=== PATIENT | female | born 1995 | race Caucasian/White ===

== ENCOUNTER 2021-05-18 17:14 | Emergency (ER) | payer MEDICAID ==
[2021-05-18] MEDS ORDERED: Sodium Chloride 0.9% 10 ML Syringe FLUSH PRN (17:42)
[2021-05-18] MEDS ORDERED: Ondansetron 4 MG/2 ML SDV IVPUSH ONE (17:59)
[2021-05-18] MEDS ORDERED: HYDROmorphone 0.5 MG/0.5 ML Syringe IVPUSH ONE (17:59)
--- NOTE | 2021-05-18 18:32 | EDM.PDOC ---
ED HPI GENERAL MEDICAL PROBLEM - General Chief Complaint: Chest Pain Stated Complaint: CHEST PAIN NUMB ARMS Time Seen by Provider: 05/18/21 17:25 Source of Information: Reports: Patient History Limitations: Reports: No Limitations - History of Present Illness INITIAL COMMENTS - FREE TEXT/NARRATIVE: 25-year-old female presents the emergency department today with complaints of craig dden onset low back pain that radiated to her chest. Patient states she was laying on the couch just prior to arrival when she developed severe mid to low back pain that radiated into her chest. She states it felt like her chest was going to explode. She states both of her hands became hot and numb at the same time. She states that since this occurred she is having colicky type of a discomfort that is slightly less severe. She denies any recent fever, chills, nausea, vomiting or diarrhea. She denies any urinary symptoms. She denies any headache, cough or shortness of breath. She denies any illicit drug use, alcohol use or smoking history. She does not take any prescription medications. She states she does have a history of anxiety however is not prescribed any medications for this. She does not have a primary care provider as she states her and her significant other just recently moved to [facility]. Chest Pain Score (Numeric/FACES): 10 - Related Data Allergies Allergy/AdvReac Type Severity Reaction Status Date / Time succinylcholine Allergy Anaphylactic Verified 05/18/21 17:26 Shock Home Meds: Home Meds Fluticasone Propionate [Flonase] 05/18/21 [History] Hydrocodone/Acetaminophen [HYDROcodone-Acetaminophen 5-325 MG] 1 each PO Q6H PRN #10 tab 05/18/21 [Rx] Levonorgestrel-Ethin Estradiol [Vienva-28 Tablet] 05/18/21 [History] ED ROS GENERAL - Review of Systems Review Of Systems: Comprehensive ROS is negative, except as noted in HPI. ED EXAM, GENERAL - Physical Exam Exam: See Below Exam Limited By: No Limitations General Appearance: Alert, WD/WN, Moderate Distress Ears: Normal External Exam, Hearing Grossly Normal Nose: Normal Inspection Throat/Mouth: Normal Inspection, Normal Lips, Normal Voice, No Airway Compromise Head: Atraumatic, Normocephalic Neck: Normal Inspection, Supple Respiratory/Chest: No Respiratory Distress, Lungs Clear, Normal Breath Sounds, No Accessory Muscle Use, Chest Non-Tender Cardiovascular: Normal Peripheral Pulses, Regular Rate, Rhythm, No Edema, No Murmur Peripheral Pulses: 2+: Radial (L), Radial (R) GI/Abdominal: Normal Bowel Sounds, Soft, Non-Tender, No Distention (Female) Exam: Deferred Rectal (Female) Exam: Deferred Back Exam: Normal Inspection, Full Range of Motion, Vertebral Tenderness (At approximately T12/L1) Extremities: Normal Inspection, Normal Range of Motion, Non-Tender, No Pedal Edema, Normal Capillary Refill Neurological: Alert, Oriented, Normal Cognition Psychiatric: Anxious Skin Exam: Warm, Dry, Intact, Normal Color Lymphatic: No Adenopathy #1 Interpretation EKG Date: 05/18/21 Time: 17:32 Rhythm: NSR Rate (Beats/Min): 75 [place]: Normal P-Wave: Present QRS: Normal ST-T: Normal QT: Normal Comparison: NA - No Prior EKG EKG Interpretation Comments: Per Dr. Alva interpretation: Sinus rhythm at 75 bpm; consider left atrial hypertrophy Course - Vital Signs Text/Narrative:: As stated above, patient presents with colicky severe low back discomfort radiating to her chest. Physical exam reveals a pale alert female. Heart sounds as well as lung sounds are unremarkable. Patient does have some discomfort when taking a deep breath that she states starts in her low back in the T12/L1 area. Back was palpated, when I get the T12/L1 area patient had severe stabbing discomfort. Patient denies paraspinal tenderness. She then request to lay flat in the bed and she states this does seem to help however the pain does not completely go away. Will obtain full cardiac work-up to include EKG, chest x-ray, CBC, CMP, magnesium, C-reactive protein, troponin and sed rate. Also obtain a urinalysis with micro and culture if indicated. We will have nursing staff place an IV and medicate the patient with Dilaudid and Zofran. Last Recorded V/S: Last Vital Signs Temp 97.5 F 05/18/21 17:23 Pulse 80 05/18/21 17:23 Resp 18 05/18/21 17:23 BP 159/91 H 05/18/21 17:23 Pulse Ox 100 05/18/21 17:23 - Orders/Labs/Meds Orders: Active Orders 24 hr Category Date Time Status Sodium Chloride 0.9% [Saline Flush] Med 05/18/21 17:42 Active 10 ml FLUSH ASDIRECTED PRN Saline Lock Insert [OM.PC] Stat Oth 05/18/21 17:42 Ordered EKG 12 Lead [EK] Stat Ther 05/18/21 17:26 Ordered Medication Orders Sodium Chloride (Sodium Chloride 0.9% 10 Ml Syringe) 10 ml FLUSH ASDIRECTED PRN PRN Reason: Keep Vein Open Last Admin: 05/18/21 18:16 Dose: 10 ml Documented by: MILENA Labs: Laboratory Tests 05/18/21 05/18/21 05/18/21 Range/Units 17:42 17:54 17:54 WBC 9.30 (3.98-10.04) K/mm3 RBC 4.65 (3.98-5.22) M/mm3 Hgb 12.3 (11.2-15.7) gm/dl Hct 38.2 (34.1-44.9) % MCV 82.2 (79.4-94.8) fl MCH 26.5 (25.6-32.2) pg MCHC 32.2 (32.2-35.5) g/dl RDW Std Deviation 43.2 (36.4-46.3) fL Plt Count 340 (182-369) K/mm3 MPV 11.9 (9.4-12.3) fl Neut % (Auto) 52.5 (34.0-71.1) % Lymph % (Auto) 38.9 (19.3-51.7) % [place] % (Auto) 6.8 (4.7-12.5) % Eos % (Auto) 1.1 (0.7-5.8) Baso % (Auto) 0.6 (0.1-1.2) % Neut # (Auto) 4.88 (1.56-6.13) K/mm3 Lymph # (Auto) 3.62 (1.18-3.74) K/mm3 [place] # (Auto) 0.63 H (0.24-0.36) K/mm3 Eos # (Auto) 0.10 (0.04-0.36) K/mm3 Baso # (Auto) 0.06 (0.01-0.08) K/mm3 ESR 5 (0-20) mm/hr Sodium 140 (136-145) mEq/L Potassium 4.1 (3.5-5.1) mEq/L Chloride 104 (98-107) mEq/L Carbon Dioxide 26 (21-32) mEq/L Anion Gap 14.1 (5-15) BUN 8 (7-18) mg/dL Creatinine 0.9 (0.55-1.02) mg/dL Est Cr Clr Drug Dosing 93.73 mL/min Estimated GFR (MDRD) > 60 (>60) mL/min BUN/Creatinine Ratio 8.9 L (14-18) Glucose 91 (70-99) mg/dL Calcium 9.3 (8.5-10.1) mg/dL Magnesium 1.9 (1.8-2.4) mg/dL Total Bilirubin 0.3 (0.2-1.0) mg/dL AST 9 L (15-37) U/L ALT 16 (14-59) U/L Alkaline Phosphatase 46 (46-116) U/L Troponin I < 0.017 (0.00-0.056) ng/mL C-Reactive Protein <0.2 (<1.0) mg/dL Total Protein 7.5 (6.4-8.2) g/dl Albumin 4.2 (3.4-5.0) g/dl Globulin 3.3 gm/dL Albumin/Globulin Ratio 1.3 (1-2) Urine Color (Yellow) Urine Appearance (Clear) Urine pH (5.0-8.0) Ur Specific [place] (1.005-1.030) Urine Protein (Negative) Urine Glucose (UA) (Negative) Urine Ketones (Negative) Urine Occult Blood (Negative) Urine Nitrite (Negative) Urine Bilirubin (Negative) Urine Urobilinogen (0.2-1.0) Ur Leukocyte Esterase (Negative) 05/18/21 Range/Units 18:49 WBC (3.98-10.04) K/mm3 RBC (3.98-5.22) M/mm3 Hgb (11.2-15.7) gm/dl Hct (34.1-44.9) % MCV (79.4-94.8) fl MCH (25.6-32.2) pg MCHC (32.2-35.5) g/dl RDW Std Deviation (36.4-46.3) fL Plt Count (182-369) K/mm3 MPV (9.4-12.3) fl Neut % (Auto) (34.0-71.1) % Lymph % (Auto) (19.3-51.7) % [place] % (Auto) (4.7-12.5) % Eos % (Auto) (0.7-5.8) Baso % (Auto) (0.1-1.2) % Neut # (Auto) (1.56-6.13) K/mm3 Lymph # (Auto) (1.18-3.74) K/mm3 [place] # (Auto) (0.24-0.36) K/mm3 Eos # (Auto) (0.04-0.36) K/mm3 Baso # (Auto) (0.01-0.08) K/mm3 ESR (0-20) mm/hr Sodium (136-145) mEq/L Potassium (3.5-5.1) mEq/L Chloride (98-107) mEq/L Carbon Dioxide (21-32) mEq/L Anion Gap (5-15) BUN (7-18) mg/dL Creatinine (0.55-1.02) mg/dL Est Cr Clr Drug Dosing mL/min Estimated GFR (MDRD) (>60) mL/min BUN/Creatinine Ratio (14-18) Glucose (70-99) mg/dL Calcium (8.5-10.1) mg/dL Magnesium (1.8-2.4) mg/dL Total Bilirubin (0.2-1.0) mg/dL AST (15-37) U/L ALT (14-59) U/L Alkaline Phosphatase (46-116) U/L Troponin I (0.00-0.056) ng/mL C-Reactive Protein (<1.0) mg/dL Total Protein (6.4-8.2) g/dl Albumin (3.4-5.0) g/dl Globulin gm/dL Albumin/Globulin Ratio (1-2) Urine Color Light yellow (Yellow) Urine Appearance Clear (Clear) Urine pH 6.5 (5.0-8.0) Ur Specific [place] 1.020 (1.005-1.030) Urine Protein Negative (Negative) Urine Glucose (UA) Negative (Negative) Urine Ketones Negative (Negative) Urine Occult Blood Negative (Negative) Urine Nitrite Negative (Negative) Urine Bilirubin Negative (Negative) Urine Urobilinogen 0.2 (0.2-1.0) Ur Leukocyte Esterase Negative (Negative) Meds: Medications Generic Name Dose Route Start Last Admin Trade Name Freq PRN Reason Stop Dose Admin Sodium Chloride 10 ml 05/18/21 17:42 05/18/21 18:16 Sodium Chloride 0.9% 10 Ml Syringe FLUSH 10 ml ASDIRECTED PRN Administration Keep Vein Open Discontinued Medications Generic Name Dose Route Start Last Admin Trade Name Freq PRN Reason Stop Dose Admin Hydromorphone HCl 0.25 mg 05/18/21 17:59 05/18/21 18:10 Hydromorphone 0.5 Mg/0.5 Ml Syringe IVPUSH 05/18/21 18:00 0.25 mg ONETIME ONE Administration Magnesium Citrate 296 ml 05/18/21 19:29 Magnesium Citrate Solution 296 Ml Bottle PO 05/18/21 19:30 ONETIME ONE Ondansetron HCl 4 mg 05/18/21 17:59 05/18/21 18:10 Ondansetron 4 Mg/2 Ml Sdv IVPUSH 05/18/21 18:00 4 mg ONETIME ONE Administration - Re-Assessments/Exams Free Text/Narrative Re-Assessment/Exam: 05/18/21 19:11 Hematology is unremarkable, ESR 5 Chemistry is essentially unremarkable, troponin less than 0.017, C-reactive protein less than 0.2 Urinalysis is unremarkable. 05/18/21 19:[address] of the abdomen and pelvis findings: Kidney shows no abnormal calcifications. No ureteral dilation or ureteral stone is seen. Visualized lung bases show nothing acute. Liver shows no focal parenchymal abnormality. Spleen appears within normal limits. Adrenal glands show no nodule. Pancreas shows no focal parenchymal abnormality. Abdominal uterus shows no aneurysm. Gallbladder contains no calcified gallstones. No retroperitoneal adenopathy is seen. No mesenteric abnormalities are seen. No pelvic mass or adenopathy is seen. Appendix is seen which is normal in size. No bowel dilation or bowel wall thickening is seen. Bone window settings were reviewed. No acute osseous finding is appreciated. Impression: No renal calculi, ureteral dilation or ureteral calculus is seen. 2. Other portions of the noncontrast CT study of the abdomen and pelvis appear within normal limits. Reviewed CT scan with Dr. Alva. Patient does have a moderate amount of stool noted in her bowels. Suspect that this could be the cause of her discomfort. She will be discharged home with a bottle of Citroma. She will also be given a few hydrocodone for the discomfort. She has been given strong return precautions. She was wondering if I had checked any hormone levels on her and I told her that we do not do that in the emergency department and she will likely need to follow-up with her primary care provider for this. Departure - Departure Time of Disposition: 19:26 Disposition: Home, Self-Care 01 Condition: Good Clinical Impression: Atypical chest pain Prescriptions: Hydrocodone/Acetaminophen [HYDROcodone-Acetaminophen 5-325 MG] 1 each PO Q6H PRN #10 tab PRN Reason: Pain (Moderate 4-6) Instructions: Nonspecific Chest Pain, Adult, [id number] Referrals: PCP,None [Primary Care Provider] - Forms: ED Department Discharge Additional Instructions: You were seen in the emergency department today with complaints of low back pain that radiated to your chest. Full cardiac work-up was completed which included labs, EKG and chest x-ray. Also obtain urinalysis and CT scan of the abdomen pelvis. Complete work-up was negative. However, as mentioned, you did have a moderate amount of stool noted in your bowels. Question if you do not have referred pain due to this. You were given a bottle of Citroma while in the emergency department. Recommend that you drink half the bottle and if you have not had a bowel movement in 3 to 6 hours, recommend drinking the other half of the bottle. Also did send a prescription for narcotic pain medication called hydrocodone to [place] [facility] in [facility]. You may take 1 tab every 6 hours as needed for moderate to severe pain. If you are not feeling better in 12 to 24 hours recommend return to the emergency department. Also recommend obtaining a primary care provider in the area for follow-up of your symptoms. Sepsis Event Note (ED) - Evaluation Sepsis Screening Result: No Definite Risk - Focused Exam Vital Signs: Vital Signs Temp Pulse Resp BP Pulse Ox 05/18/21 17:23 97.5 F 80 18 159/91 H 100 - My Orders Last 24 Hours: My Active Orders 05/18/21 17:26 EKG 12 Lead [EK] Stat 05/18/21 17:42 Sodium Chloride 0.9% [Saline Flush] 10 ml FLUSH ASDIRECTED PRN Saline Lock Insert [OM.PC] Stat - Assessment/Plan Last 24 Hours: My Active Orders 05/18/21 17:26 EKG 12 Lead [EK] Stat 05/18/21 17:42 Sodium Chloride 0.9% [Saline Flush] 10 ml FLUSH ASDIRECTED PRN Saline Lock Insert [OM.PC] Stat
--- NOTE | 2021-05-18 18:45 | CR ---
Chest: Portable view of the chest was obtained. Comparison: No prior chest imaging is available. Heart size and mediastinum are within normal limits. Lungs are clear with no acute parenchymal change. Bony structures appear within normal limits. Impression: 1. Nothing acute is seen on portable chest x-ray. Diagnostic code #1
--- NOTE | 2021-05-18 19:11 | CT ---
CT abdomen and pelvis Technique: Multiple axial sections were obtained from above the dome of the diaphragm inferiorly through the pubic symphysis. Intravenous and oral contrast were not utilized. Study has been performed as a ureteral stone protocol. Comparison: No prior abdominal imaging is available. Findings: Kidneys show no abnormal calcifications. No ureteral dilatation or ureteral stone is seen. Visualized lung bases show nothing acute. Liver shows no focal parenchymal abnormality. Spleen appears within normal limits. Adrenal glands show no nodule. Pancreas shows no focal parenchymal abnormality. Abdominal aorta shows no aneurysm. Gallbladder contains no calcified gallstones. No retroperitoneal adenopathy is seen. No mesenteric abnormalities are seen. No pelvic mass or adenopathy is seen. Appendix is seen which is normal in size. No bowel dilatation or bowel wall thickening is seen. Bone window settings were reviewed. No acute osseous finding is appreciated. Impression: 1. No renal calculi, ureteral dilatation or ureteral calculus is seen. 2. Other portions of the noncontrast CT study of the abdomen and pelvis appear within normal limits. Diagnostic code #1:
[2021-05-18] MEDS ORDERED: Magnesium Citrate Solution 296 ML Bottle PO ONE (19:29)
== END 2021-05-18 20:11 | disposition home or self-care (01) ==
LOC: JD.ED 17:14
DX: R07.89 Other chest pain (principal); Z91.048 Other nonmedicinal substance allergy status
CPT/HCPCS: 36415; 71045; 74176; 80053; 81003; 83735; 84484; 85025; 85652; 86140; 93005; 96374; 96375; 99285; A9270; J1170; J2405; 93010

== ENCOUNTER 2021-06-21 20:44 | Emergency (ER) | payer BC | END 2021-06-21 22:55 | disposition home or self-care (01) | LOC: JD.ED 20:44 | DX: R00.2 Palpitations (principal); Z88.8 Allergy status to other drugs, medicaments and biological substances; Z72.0 Tobacco use | CPT/HCPCS: 36415; 71045; 71045-26; 80053; 84484; 85025; 85379; 85610; 93005; 93010; 93225; 93226; 99285; 99285-25 ==

== ENCOUNTER 2021-10-07 18:05 | Emergency (ER) | payer MEDICAID | END 2021-10-07 21:20 | disposition home or self-care (01) | LOC: JD.ED 18:05 | DX: R07.89 Other chest pain (principal); Z88.4 Allergy status to anesthetic agent; Z79.899 Other long term (current) drug therapy | CPT/HCPCS: 36415; 71046; 71046-26; 80053; 84484; 85025; 85379; 93005; 99285-25 ==

== ENCOUNTER 2021-11-25 01:52 | Emergency (ER) | payer MEDICAID | END 2021-11-25 03:21 | disposition left against medical advice (07) | LOC: JD.ED 01:52 | DX: Z53.21 Procedure and treatment not carried out due to patient leaving prior to being seen by health care provider (principal) ==

== ENCOUNTER 2022-01-23 10:50 | Day surgery (SDC) | payer MEDICAID ==
[~2022-01-23 10:50] MED LIST: Lactated Ringers 1,000 ML IV SCH; Lidocaine 1%/Sod Bicarbonate in NS 8.4% 1 ML Syringe IDERM PRN; Sodium Chloride 0.9% 10 ML Syringe FLUSH PRN; Sodium Chloride 0.9% 10 ML Syringe FLUSH SCH
[2022-01-23] MEDS ORDERED: Lidocaine 1% 4 ML ONE (12:18)
[2022-01-23] MEDS ORDERED: Propofol 200 MG/20 ML SDV ONE ×3 (12:18→12:40)
[2022-01-23] MEDS ORDERED: Midazolam 1 MG/ML 2 ML SDV ONE (12:19)
[2022-01-23] MEDS ORDERED: Bupivacaine 0.5% 30 ML SDV ONE (12:56)
[2022-01-23] MEDS ORDERED: Lactated Ringers 1,000 ML ONE (12:57)
[2022-01-23] MEDS ORDERED: Lactated Ringers 0 ML ONE (12:57)
[2022-01-23] MEDS ORDERED: Ketorolac 30 MG/ML SDV IVPUSH ONE (14:00)
== END 2022-01-23 14:35 | disposition home or self-care (01) ==
LOC: JD.SDS 10:50
PROVIDERS: ATTEND Surgery
DX: K62.5 Hemorrhage of anus and rectum (principal); K64.8 Other hemorrhoids; K20.90 Esophagitis, unspecified without bleeding; K29.90 Gastroduodenitis, unspecified, without bleeding; K22.89 Other specified disease of esophagus; K44.9 Diaphragmatic hernia without obstruction or gangrene; Z88.8 Allergy status to other drugs, medicaments and biological substances
CPT/HCPCS: 43239; 45378; 46221; J1885; J2250; J2704; J3490; J7120; 00813

== ENCOUNTER 2023-11-12 17:35 | Emergency (ER) | payer MEDICAID ==
[2023-11-12] MEDS: cefTRIAXone 1 GM, Lidocaine 1% 2.1 ML IM ONE (18:47)
== END 2023-11-12 19:26 | disposition home or self-care (01) ==
LOC: JD.ED 17:35
DX: K11.20 Sialoadenitis, unspecified (principal); Z79.899 Other long term (current) drug therapy
CPT/HCPCS: 96372; 99282; J0696; J3490

== ENCOUNTER 2024-10-23 20:47 | Emergency (ER) | payer MEDICAID ==
[2024-10-23] MEDS ORDERED: Sodium Chloride 0.9% 10 ML Syringe FLUSH PRN (21:15)
[2024-10-23] MEDS: Alum Hydrox/Mag Hydrox/Simeth 30 ML, Lidocaine 2% 15 ML PO ONE (21:26)
[2024-10-23 21:27] LABS: BASOPHILS ABSOLUTE AUTO 0.1 K/mm3 (0.0-0.2); BASOPHILS PERCENT AUTO 0.4 % (0.0-1.0); EOSINOPHILS ABSOLUTE AUTO 0.1 K/mm3 (0.0-0.4); EOSINOPHILS PERCENT AUTO 0.4 % (0.0-6.0); HEMATOCRIT 42.3 % (37.0-47.0); HEMOGLOBIN 14.8 gm/dl (12.0-16.0); IMMATURE GRAN ABSOLUTE AUTO 0.09 K/mm3 (0.00-0.05); IMMATURE GRAN PERCENT AUTO 0.7 % (0.0-0.4); LYMPHOCYTES ABSOLUTE AUTO 3.9 K/mm3 (1.0-4.8); LYMPHOCYTES PERCENT AUTO 29.4 % (24.0-44.0); MEAN CORPUSCULAR HEMOGLOBIN 29.4 pg (28.0-32.0); MEAN CORPUSCULAR VOLUME 83.9 fl (83.0-99.0); MEAN PLATELET VOLUME 12.2 fl (9.4-12.3); MONOCYTES ABSOLUTE AUTO 0.6 K/mm3 (0.0-0.8); MONOCYTES PERCENT AUTO 4.8 % (0.0-8.0); NEUTROPHILS ABSOLUTE AUTO 8.5 K/mm3 (1.8-7.7); NEUTROPHILS PERCENT AUTO 64.3 % (41.0-71.0); PLATELET COUNT,PLT 306 K/mm3 (150-400); RED BLOOD CELL COUNT 5.04 M/mm3 (4.10-5.30); WHITE BLOOD CELL COUNT,WBC 13.24 K/mm3 (3.9-11.3)
[2024-10-23] MEDS: Famotidine 20 MG Tab PO ONE (21:27)
[2024-10-23 21:45] LABS: A/G RATIO 1.1 (1-2); ALANINE AMINOTRANSFERASE,ALT 133 U/L (14-59); ALBUMIN 4.1 g/dl (3.4-5.0); ALKALINE PHOSPHATASE 64 U/L (46-116); ANION GAP 14.5 (5-15); ASPARTATE AMNIOTRANSFERASE,AST 35 U/L (15-37); BILIRUBIN TOTAL 0.4 mg/dL (0.2-1.0); BLOOD UREA NITROGEN,BUN 2 mg/dL (7-18); BUN/CREATININE RATIO 2.2 (14-18); CALCIUM 9.6 mg/dL (8.5-10.1); CARBON DIOXIDE,CO2 25 mEq/L (21-32); CHLORIDE,CL 102 mEq/L (98-107); CREATININE 0.9 mg/dL (0.55-1.02); EST CRCL DRUG DOSING (CG) 128.21 mL/min; ESTIMATED GFR 89 mL/min (>60); GLUCOSE RANDOM 96 mg/dL (70-99); LIPASE 25 U/L (16-77); POTASSIUM,K 3.5 mEq/L (3.5-5.1); PROTEIN TOTAL,TP 7.8 g/dl (6.4-8.2); SODIUM,NA 138 mEq/L (136-145)
[2024-10-23 21:51] LABS: TROPONIN I HIGH SENSITIVITY < 4 pg/mL (<=51)
[2024-10-23 22:41] LABS: APPEARANCE,URINE CLEAR (Clear); BILIRUBIN,URINE NEGATIVE (Negative); COLOR,URINE LIGHT YELLOW (Yellow); GLUCOSE,URINE NEGATIVE (Negative); KETONES,URINE TRACE (Negative); LEUKOCYTE ESTERASE,URINE TRACE (Negative); NITRITE,URINE NEGATIVE (Negative); OCCULT BLOOD,URINE NEGATIVE (Negative); PH,URINE 6.5 (5.0-8.0); PROTEIN,URINE NEGATIVE (Negative); UROBILINOGEN,URINE 0.2 (0.2-1.0)
[2024-10-23] MEDS: Ondansetron 4 MG/2 ML SDV IVPUSH ONE (22:46)
[2024-10-23 22:51] LABS: BACTERIA,URINE FEW /hpf (FEW); MUCUS,URINE NOT SEEN /hpf (FEW); RBC,URINE 0-5 /hpf (0-5); WBC,URINE 0-5 /hpf (0-5)
== END 2024-10-24 | disposition home or self-care (01) ==
LOC: JD.ED 20:47
DX: R07.9 Chest pain, unspecified (principal); K21.9 Gastro-esophageal reflux disease without esophagitis; J45.909 Unspecified asthma, uncomplicated; Z86.16 Personal history of COVID-19; Z87.891 Personal history of nicotine dependence; Z79.899 Other long term (current) drug therapy; Z88.2 Allergy status to sulfonamides
CPT/HCPCS: 36415; 71045; 80053; 81001; 83690; 84484; 84703; 85025; 87086; 93005; 96374; 99285; A9270; J2405

== ENCOUNTER 2024-10-27 01:36 | Emergency (ER) | payer MEDICAID ==
[2024-10-27] MEDS: Sodium Chloride 0.9% 1,000 ML IV ONE (02:29)
[2024-10-27] MEDS: Ondansetron 4 MG/2 ML SDV IVPUSH ONE (02:29)
[2024-10-27 02:59] LABS: BASOPHILS ABSOLUTE AUTO 0.1 K/mm3 (0.0-0.2); BASOPHILS PERCENT AUTO 0.4 % (0.0-1.0); EOSINOPHILS ABSOLUTE AUTO 0.1 K/mm3 (0.0-0.4); EOSINOPHILS PERCENT AUTO 0.7 % (0.0-6.0); HEMATOCRIT 38.8 % (37.0-47.0); HEMOGLOBIN 13.2 gm/dl (12.0-16.0); IMMATURE GRAN ABSOLUTE AUTO 0.03 K/mm3 (0.00-0.05); IMMATURE GRAN PERCENT AUTO 0.2 % (0.0-0.4); LYMPHOCYTES PERCENT AUTO 29.8 % (24.0-44.0); MEAN CORPUSCULAR VOLUME 85.3 fl (83.0-99.0); MEAN PLATELET VOLUME 12.7 fl (9.4-12.3); MONOCYTES ABSOLUTE AUTO 0.8 K/mm3 (0.0-0.8); MONOCYTES PERCENT AUTO 6.1 % (0.0-8.0); NEUTROPHILS ABSOLUTE AUTO 8.4 K/mm3 (1.8-7.7); NEUTROPHILS PERCENT AUTO 62.8 % (41.0-71.0); PLATELET COUNT,PLT 263 K/mm3 (150-400); RED BLOOD CELL COUNT 4.55 M/mm3 (4.10-5.30); WHITE BLOOD CELL COUNT,WBC 13.34 K/mm3 (3.9-11.3)
[2024-10-27] MEDS ORDERED: Sodium Chloride 0.9% 10 ML Syringe FLUSH PRN (03:19)
[2024-10-27 03:36] LABS: A/G RATIO 1.1 (1-2); ALANINE AMINOTRANSFERASE,ALT 121 U/L (14-59); ALBUMIN 3.8 g/dl (3.4-5.0); ALKALINE PHOSPHATASE 52 U/L (46-116); ASPARTATE AMNIOTRANSFERASE,AST 27 U/L (15-37); BILIRUBIN TOTAL 0.3 mg/dL (0.2-1.0); BLOOD UREA NITROGEN,BUN 9 mg/dL (7-18); CALCIUM 9.3 mg/dL (8.5-10.1); CARBON DIOXIDE,CO2 26 mEq/L (21-32); CHLORIDE,CL 104 mEq/L (98-107); CREATININE 0.9 mg/dL (0.55-1.02); ESTIMATED GFR 89 mL/min (>60); GLUCOSE RANDOM 116 mg/dL (70-99); LIPASE 48 U/L (16-77); PROTEIN TOTAL,TP 7.3 g/dl (6.4-8.2); SODIUM,NA 141 mEq/L (136-145)
[2024-10-27 03:45] LABS: TROPONIN I HIGH SENSITIVITY < 4 pg/mL (<=51)
[2024-10-27] MEDS: Famotidine 20 MG/2 ML SDV IVPUSH ONE (04:11)
[2024-10-27] MEDS: Potassium Chloride 20 MEQ Tab.ER PO ONE (05:58)
[2024-10-27] MEDS: Potassium Chloride 10 MEQ in Premix Bag 1 BAG IV SCH (05:59)
== END 2024-10-27 06:15 | disposition home or self-care (01) ==
LOC: JD.ED 01:36
DX: R55 Syncope and collapse (principal); E87.6 Hypokalemia; Z86.16 Personal history of COVID-19
CPT/HCPCS: 36415; 71045; 80053; 83690; 83735; 84484; 84703; 85025; 93005; 96361; 96374; 96375; 99285; A9270; J2405; J7030; 93010; 99284

== ENCOUNTER 2025-02-08 23:35 | Emergency (ER) | payer MEDICAID ==
[2025-02-09 00:08] LABS: BASOPHILS ABSOLUTE AUTO 0.1 K/mm3 (0.0-0.2); BASOPHILS PERCENT AUTO 0.6 % (0.0-1.0); EOSINOPHILS ABSOLUTE AUTO 0.1 K/mm3 (0.0-0.4); EOSINOPHILS PERCENT AUTO 0.9 % (0.0-6.0); IMMATURE GRAN ABSOLUTE AUTO 0.04 K/mm3 (0.00-0.05); IMMATURE GRAN PERCENT AUTO 0.4 % (0.0-0.4); LYMPHOCYTES ABSOLUTE AUTO 4.3 K/mm3 (1.0-4.8); LYMPHOCYTES PERCENT AUTO 40.0 % (24.0-44.0); MEAN PLATELET VOLUME 12.1 fl (9.4-12.3); MONOCYTES ABSOLUTE AUTO 0.8 K/mm3 (0.0-0.8); MONOCYTES PERCENT AUTO 7.5 % (0.0-8.0); NEUTROPHILS ABSOLUTE AUTO 5.4 K/mm3 (1.8-7.7); NEUTROPHILS PERCENT AUTO 50.6 % (41.0-71.0); NRBC ABSOLUTE 0.00 (0.00-0.02); NRBC PERCENT 0.0 % (0.0-0.2); PLATELET COUNT,PLT 314 K/mm3 (150-400); RED BLOOD CELL COUNT 4.56 M/mm3 (4.10-5.30); WHITE BLOOD CELL COUNT,WBC 10.64 K/mm3 (3.9-11.3)
[2025-02-09] MEDS: Sodium Chloride 0.9% 10 ML Syringe FLUSH PRN (00:09)
[2025-02-09 00:14] LABS: A/G RATIO 1.1 (1-2); ALANINE AMINOTRANSFERASE,ALT 17.0 U/L (14-59); ASPARTATE AMNIOTRANSFERASE,AST 10.0 U/L (15-37); BILIRUBIN TOTAL 0.1 mg/dL (0.2-1.0); BLOOD UREA NITROGEN,BUN 8.0 mg/dL (7-18); CARBON DIOXIDE,CO2 27.0 mEq/L (21-32); CHLORIDE,CL 107.0 mEq/L (98-107); CREATININE 0.9 mg/dL (0.55-1.02); EST CRCL DRUG DOSING (CG) 90.5 mL/min; ESTIMATED GFR 89.0 mL/min (>60); GLUCOSE RANDOM 108.0 mg/dL (70-99); POTASSIUM,K 3.5 mEq/L (3.5-5.1); PROTEIN TOTAL,TP 6.8 g/dl (6.4-8.2); SODIUM,NA 141.0 mEq/L (136-145)
[2025-02-09 01:52] LABS: APPEARANCE,URINE CLEAR (Clear); GLUCOSE,URINE NEGATIVE (Negative); OCCULT BLOOD,URINE TRACE-INTACT (Negative)
[2025-02-09 02:06] LABS: EPITHELIAL CELLS,URINE 0-5 /hpf (0-5)
== END 2025-02-09 02:18 | disposition home or self-care (01) ==
LOC: JD.ED 23:35
DX: M54.50 Low back pain, unspecified (principal); K21.9 Gastro-esophageal reflux disease without esophagitis; J45.909 Unspecified asthma, uncomplicated; Z79.899 Other long term (current) drug therapy; Z79.51 Long term (current) use of inhaled steroids; Z88.8 Allergy status to other drugs, medicaments and biological substances; Z86.16 Personal history of COVID-19
CPT/HCPCS: 36415; 74176; 80053; 81001; 83690; 84703; 85025; 96361; 96374; 99284; A9270; J7030; J1171

== ENCOUNTER 2025-02-26 12:53 | Emergency (ER) | payer MEDICAID ==
[2025-02-26] MEDS: diphenhydrAMINE 50 MG/ML SDV IVPUSH ONE (14:31)
== END 2025-02-26 16:21 | disposition home or self-care (01) ==
LOC: JD.ED 12:53
DX: S06.0X0A Concussion without loss of consciousness, initial encounter (principal); J45.909 Unspecified asthma, uncomplicated; K21.9 Gastro-esophageal reflux disease without esophagitis; Z86.16 Personal history of COVID-19; Z88.8 Allergy status to other drugs, medicaments and biological substances; Z79.51 Long term (current) use of inhaled steroids; Z79.899 Other long term (current) drug therapy; W01.198A Fall on same level from slipping, tripping and stumbling with subsequent striking against other object, initial encounter; Y93.89 Activity, other specified
CPT/HCPCS: 96361; 96374; 96375; 99283; A9270; J1200; J2765; J7030